=== PATIENT | female | born 1990 | race Caucasian/White ===

== ENCOUNTER 2019-02-05 18:43 | Inpatient (IN) | payer MEDICAID, SELFPAY ==
[~2019-02-05] VITALS: Ht 165.1 cm; Wt 81.4 kg
[2019-02-05] MEDS ORDERED: BCP (18:53)
[2019-02-05] MEDS ORDERED: methylPREDNISolone INJ 125 MG/2 ML VIAL (J2930) IV ONE (19:45)
[2019-02-05] MEDS ORDERED: ACETAMINOPHEN TAB 650MG DOSE (2X325MG) PO ONE (19:45)
[2019-02-05 19:58] LABS: INFLUENZA A AMPLIFICATION NEGATIVE (NEGATIVE); INFLUENZA B AMPLIFICATION POSITIVE (NEGATIVE)
[2019-02-05] MEDS ORDERED: NS 1,000 ML IV ONE (20:00)
[2019-02-05 20:05] LABS: ABG BASE EXCESS -5.9 (-2.0-2.0); ABG HCO3 16.9 MEQ/L (22.0-26.0); ABG O2 SATURATION 94.2 % (95.0-99.0); ABG PARTIAL PRESSURE CO2 26.1 mmHg (35.0-45.0); ABG PARTIAL PRESSURE O2 67.4 mmHg (75.0-100.0); ABG STANDARD HCO3 19.6 MEQ/L (22.0-26.0); ABG TOTAL CO2 17.7 MEQ/L (22.0-29.0); ABG pH (ARTERIAL) 7.428 UNITS (7.350-7.450)
[2019-02-05 20:18] LABS: BASO % 0.1 % (0.0-1.0); HEMATOCRIT 37.8 % (36.0-47.0); HEMOGLOBIN 12.6 g/dl (12.0-15.5); LYMPH # 0.3 10^3/uL (1.5-5.0); LYMPH % 1.9 % (24.0-44.0); MEAN CORPUSCULAR HEMOGLOBIN 30.1 pg (27.0-33.0); MEAN CORPUSCULAR HGB CONC 33.3 g/dl (32.0-36.5); MEAN CORPUSCULAR VOLUME 90.4 fl (80.0-96.0); MONO # 0.5 10^3/uL (0.0-0.8); MONO % 3.5 % (0.0-5.0); NEUTROPHILS # 13.6 10^3/uL (1.5-8.5); NEUTROPHILS % 93.9 % (36.0-66.0); PLATELET COUNT, AUTOMATED 294 10^3/uL (150-450); RED BLOOD COUNT 4.18 10^6/uL (4.00-5.40); WHITE BLOOD COUNT 14.5 10^3/uL (4.0-10.0)
[2019-02-05 20:29] LABS: INR 1.13; PROTHROMBIN TIME 14.2 SECONDS (11.8-14.0)
[2019-02-05 20:51] LABS: ALBUMIN 3.8 GM/DL (3.2-5.2); ALT/SGPT 26 U/L (12-78); BILIRUBIN,DIRECT 0.3 MG/DL (0.0-0.2); BILIRUBIN,TOTAL 0.9 MG/DL (0.2-1.0); BLOOD UREA NITROGEN 8 MG/DL (7-18); CARBON DIOXIDE LEVEL 21 MEQ/L (21-32); CHLORIDE LEVEL 105 MEQ/L (98-107); CK-MB VALUE MASS 1.1 NG/ML (<3.6); CPK CREATINE PHOSPHOKINASE 74 U/L (26-192); CREATININE FOR GFR 0.79 MG/DL (0.55-1.30); GLOMERULAR FILTRATION RATE > 60.0 (>60); GLUCOSE, FASTING 110 MG/DL (70-100); MB/CK RELATIVE INDEX 1.49 (< OR =4); NT-PRO BNP 305 PG/ML (<125); POTASSIUM SERUM 3.9 MEQ/L (3.5-5.1); SODIUM LEVEL 136 MEQ/L (136-145); THYROID STIMULATING HORMONE 0.341 uIU/ML (0.358-3.740); TOTAL PROTEIN 7.6 GM/DL (6.4-8.2); TROPONIN I < 0.02 NG/ML (< 0.10)
[2019-02-05] MEDS ORDERED: ISOVUE-370 76% 100ML VIAL (Q9967) As Ordered ONE (21:04)
--- NOTE | 2019-02-05 22:00 | REPVR ---
PROCEDURE INFORMATION: Exam: CT Angiography Chest With Contrast Exam date and time: 02/05/2019 9:13 PM Age: 28 years old Clinical history: Cough and fever and shortness of breath; Additional info: Fever, SOB, cough TECHNIQUE: Imaging protocol: Computed tomographic angiography of the chest with intravenous contrast. 3D rendering: MIP reconstructed images were created and reviewed. Radiation optimization: All CT scans at this facility use at least one of these dose optimization techniques: automated exposure control; mA and/or kV adjustment per patient size (includes targeted exams where dose is matched to clinical indication); or iterative reconstruction. Contrast material: ISOVUE 370; Contrast volume: 75 ml; Contrast route: IV; COMPARISON: No relevant prior studies available. FINDINGS: Pulmonary arteries: Normal. No pulmonary emboli. Aorta: Unremarkable. No aortic aneurysm. No aortic dissection. Lungs: Patchy air space opacities in the right middle and lower lobes. Lungs are otherwise clear. Pleural space: Unremarkable. No pneumothorax. No pleural effusion. Heart: Unremarkable. No cardiomegaly. No pericardial effusion. Lymph nodes: Unremarkable. No enlarged lymph nodes. Bones/joints: Unremarkable. No acute fracture. Soft tissues: Unremarkable. IMPRESSION: 1. Right middle and lower lobe pneumonia. 2. No evidence of pulmonary embolism. Electronically signed by: Trevor Whipple On 02/05/2019 22:00:23 PM
[2019-02-05] MEDS: IPRATROPIUM 0.5MG/ALBUTEROL 2.5MG INH SOL UD 3ML (DUONEB)(J7620) NEB PRN ×2 (22:02→22:12)
[2019-02-05] MEDS ORDERED: TRI-1TAB PO (22:37)
[2019-02-05] MEDS ORDERED: ACET-897 PO (22:37)
[2019-02-05] MEDS ORDERED: OSELTAMIVIR PHOSPHATE 75 MG CAP (TAMIFLU) PO ONE (22:45)
--- NOTE | 2019-02-05 22:58 | HPEPDOC ---
[facility] Medical History & Physical Date of Admission Feb 05, 2019 Date of Service: Feb 05, 2019 Attending Physician: JOE HOLT MD History and Physical TIME OF SERVICE: 11:40 PM CHIEF COMPLAINT: Shortness of breath HISTORY OF PRESENT ILLNESS: This is a 28-year-old old female who presents with complaints of shortness of breath off and on and dry cough for one year. She came in today because she de veloped fever, chills, and myalgias. She suspects she may have been exposed to people that were sick at her workplace. She reports being diagnosed with pneumonia 1 year ago and having frequent upper respiratory tract infections. REVIEW OF SYSTEMS: 12 point review of systems negative except as listed in HPI PAST MEDICAL/ SURGICAL HISTORY: History of pneumonia SOCIAL HISTORY: She drinks alcohol about one time per week and uses marijuana FAMILY HISTORY: Her grandpa had pneumonia ALLERGIES: Please see below. HOME MEDICATIONS: Please see below. PHYSICAL EXAMINATION: VITAL SIGNS: Please see below. GENERAL APPEARANCE: Well-nourished, well-developed, not in apparent distress, does not appear toxic HEENT: Normocephalic, atraumatic, mucous membranes slightly dry and pink. Lips are acyanotic.nasal cannula is in place LUNGS: There is equal air entry bilaterally, lungs are clear to auscultation bilaterally ABDOMEN: Abdomen is soft and nontender on palpation MUSCULOSKELETAL: There is no lower extremity edema. Range of motion is intact in all 4 extremities. She does not have fingernail clubbing. There is no lower extremity edema INTEGUMENT: She does not appear pale. Her skin is not flushed. She has a tattoo on her lower leg NEUROLOGICAL: cranial nerves II-12 are grossly intact. Speech is not dysarthric PSYCHIATRIC: Alert and oriented to person, place and time, able to understand and follow commands LABORATORY DATA: See below. IMAGING: CTA chest "IMPRESSION: 1. Right middle and lower lobe pneumonia. 2. No evidence of pulmonary embolism." MICROBIOLOGY: Please see below. ASSESSMENT: Ms. Aleman is a 28-year-old with a past medical history of pneumonia who will be admitted for management of sepsis secondary to influenza B & right sided pneumonia. PLAN: 1.Sepsis 2/2 Right Sided Pneumonia and Influenza B SIRS criteria include H R >90 / WBC >12 / RR >20 She also has non diabetic hyperglycemia. The ABG was reviewed; the mild hypoxic respiratory failure is 2/2 the upper respiratory tract infection The lactic acid is within normal limits NEW2S Score = 10 points = high risk Sepsis protocol was initiated in the ER, she received ceftriaxone, azithromycin and Tamiflu PORT/PSI Score to predict risk of mortality in pt w CAP = 48 points = class II risk = 0.6-0.9% mortality Plan: admit to medical floor/ telemetry /check orthostatics/ continue with IV fluids & supplemental O2 / f/u blood cx, and sputum Cx / Acetaminophen PRN for fever &Tessalon Perles when necessary for cough / target MAP 65 to 70 / f/u Is and Os with target UOP of at least 0.5 ml/kg/H / target serum glucose 140-180 while acutely ill / she can follow-up with her PCP to receive her flu shot on an outpatient basis DVT prophylaxis with Lovenox. Disposition likely home after more than 2 midnight stay Vital Signs Vital Signs Date Time Temp Pulse Resp B/P (MAP) Pulse Ox O2 Delivery O2 Flow Rate FiO2 02/05/19 22:25 99.1 02/05/19 22:15 127 114/55 (74) 96 Nasal Cannula 2.0 02/05/19 18:43 36 Laboratory Data Labs 24H Laboratory Tests 2 02/05/19 19:18: Influenza Type A (RT-PCR) NEGATIVE, Influenza Type B (RT-PCR) POSITIVEH 02/05/19 19:53: Blood Gas Bicarbonate Standard 19.6L, Arterial Blood pH 7.428, Arterial Blood Partial Pressure CO2 26.1L, Arterial Blood Partial Pressure O2 67.4L, Arterial Blood Total CO2 17.7L, Arterial Blood HCO3 16.9L, Arterial Blood Base Excess - 5.9L, Arterial Blood Oxygen Saturation 94.2L 02/05/19 20:06: Immature Granulocyte % (Auto) 0.6, Neutrophils (%) (Auto) 93.9H, Lymphocytes (%) (Auto) 1.9L, Monocytes (%) (Auto) 3.5, Eosinophils (%) (Auto) 0.0, Basophils (%) (Auto) 0.1, Neutrophils # (Auto) 13.6H, Lymphocytes # (Auto) 0.3L, Monocytes # (Auto) 0.5, Eosinophils # (Auto) 0.0, Basophils # (Auto) 0.0, Nucleated Red Blood Cells % (auto) 0.0, Prothrombin Time 14.2H, Prothromb Time International Ratio 1.13, Anion Gap 10, Glomerular Filtration Rate > 60.0, Lactic Acid Level 1.0, Calcium Level 9.0, Total Bilirubin 0.9, Direct Bilirubin 0.3H, Aspartate Amino Transf (AST/SGOT) 17, Alanine Aminotransferase (ALT/SGPT) 26, Alkaline Phosphatase 47, Total Creatine Kinase 74, Creatine Kinase MB 1.1, Creatine Kinase MB Relative Index 1.49, Troponin I < 0.02, IS-Mow-G-Type Natriuretic Peptide 305H, Total Protein 7.6, Albumin 3.8, Albumin/Globulin Ratio 1.00, Thyroid Stimulating Hormone (TSH) 0.341L CBC/BMP Laboratory Tests 02/05/19 20:06 Microbiology Microbiology 02/05/19 Blood Culture, Received Pending 02/05/19 Blood Culture, Received Pending Home Medications Scheduled Norgestimate-Ethinyl Estradiol (Ypf-Xu-Afbpkawf Tablet) 1 Each Tablet, 1 TAB PO QHS Scheduled PRN Acetaminophen (Tylenol Extra Strength) 500 Mg Tablet, 1,000 MG PO Q6H PRN for PAIN / FEVER Allergies Coded Allergies: No Known Allergies (Unverified , 02/05/19) A-FIB/CHADSVASC A-FIB History Current/History of A-Fib/PAF?: No Current PO Anticoag Therapy: JOE Santos MD Feb 05, 2019 22:58
[2019-02-05] MEDS ORDERED: SODIUM CHLORIDE 0.9% 1000ML IV STA (22:59)
[2019-02-05] MEDS ORDERED: cefTRIAXone SOD 1 GM in D5W MINI-BAG PLUS 50 ML IV ONE (23:00)
[2019-02-05] MEDS ORDERED: AZITHROMYCIN INJ 500 MG, VIAL MATE ADAPTER 1 EACH in D5W 250 ML IV ONE (23:00)
[2019-02-06] MEDS ORDERED: NS 1,000 ML IV ONE ×2 (02:00)
[2019-02-06 03:15] VITALS: BP 136/84
[2019-02-06 03:30] VITALS: BP_SYST 136; BP_SYST 169; BP_SYST 178; BP_DIAS 84; BP_DIAS 85; BP_DIAS 95
[2019-02-06] MEDS: cefTRIAXone SOD 2 GM in D5W MINI-BAG PLUS 50 ML IV SCH ×2 (05:05→17:40)
[2019-02-06 06:00] VITALS: BP_SYST 140; BP_SYST 146; BP_SYST 147; BP_DIAS 86; BP_DIAS 89; BP_DIAS 90
[2019-02-06 06:32] LABS: HEMATOCRIT 33.7 % (36.0-47.0); HEMOGLOBIN 10.7 g/dl (12.0-15.5); MEAN CORPUSCULAR HEMOGLOBIN 29.4 pg (27.0-33.0); MEAN CORPUSCULAR HGB CONC 31.8 g/dl (32.0-36.5); MEAN CORPUSCULAR VOLUME 92.6 fl (80.0-96.0); PLATELET COUNT, AUTOMATED 274 10^3/uL (150-450); RED BLOOD COUNT 3.64 10^6/uL (4.00-5.40); WHITE BLOOD COUNT 9.5 10^3/uL (4.0-10.0)
[2019-02-06 06:42] LABS: BLOOD UREA NITROGEN 8 MG/DL (7-18); CALCIUM LEVEL 8.2 MG/DL (8.5-10.1); CARBON DIOXIDE LEVEL 19 MEQ/L (21-32); CHLORIDE LEVEL 112 MEQ/L (98-107); CREATININE FOR GFR 0.76 MG/DL (0.55-1.30); GLOMERULAR FILTRATION RATE > 60.0 (>60); GLUCOSE, FASTING 171 MG/DL (70-100); MAGNESIUM LEVEL 1.9 MG/DL (1.8-2.4); POTASSIUM SERUM 3.9 MEQ/L (3.5-5.1); SODIUM LEVEL 139 MEQ/L (136-145)
[2019-02-06] MEDS: ENOXAPARIN 40 MG/0.4 ML SYRINGE (J1650) SC SCH (08:26)
[2019-02-06] MEDS: OSELTAMIVIR PHOSPHATE 75 MG CAP (TAMIFLU) PO SCH ×2 (08:26→22:05)
[2019-02-06] MEDS ORDERED: INFLUENZA QUADRIVALENT PF VACCINE 0.5ML SYRINGE (90686) IM ONE (09:00)
[2019-02-06 14:00] VITALS: BP 145/88
--- NOTE | 2019-02-06 14:29 | IPNPDOC ---
Text Note Date of Service The patient was seen on 02/06/19. NOTE Subjective: Patient stated that she feels better today, she has intermittent cough with mild shortness of breath Patient denies chest pain, palpitations, diarrhea or dysuria Objective:VITAL SIGNS: Please see below. GENERAL APPEARANCE: Well-nourished, well-developed F HEENT: Normocephalic, atraumatic. Mucous members moist and pink CARDIOVASCULAR: Regular rate and rhythm. No murmurs, rubs or gallops. Radial pulses are intact. There is no lower extremity edema LUNGS: Clear to auscultation ABDOMEN: Abdomen is soft and nontender. MUSCULOSKELETAL: Range of motion is intact in all 4 extremities NEUROLOGICAL: Cranial nerves II-12 are grossly intact. Speech is not dysarthric 28-year-old with a past medical history of pneumonia who will be admitted for management of sepsis secondary to influenza B & right sided pneumonia. Sepsis Resolved Secondary to right-sided pneumonia due to influenza type B superimposed with bacterial component CT showed right middle and lower lobe infiltrate Ceftriaxone IV, azithromycin IV Tylenol when necessary Community-acquired pneumonia See above Incentive spirometry Influenza B Continue Tamiflu VS,Fishbone, I+O VS, Fishbone, I+O Laboratory Tests 02/05/19 20:06 02/06/19 05:39 Vital Signs Date Time Temp Pulse Resp B/P (MAP) Pulse Ox O2 Delivery O2 Flow Rate FiO2 02/06/19 08:27 1.0 02/06/19 06:00 120 140/86 (104) 128 146/90 (108) 124 147/89 (108) 02/06/19 03:15 99.0 22 96 Nasal Cannula I&O- Last 24 Hours up to 6 AM 02/06/19 06:00 Intake Total 2800 ml Output Total 800 ml Balance 2000 ml MARCY LESLIE DO Feb 06, 2019 14:29
--- NOTE | 2019-02-06 15:19 | ECGEPIP ---
[facility] - ED Test Date: 2019-02-05 Pat Name: KENNEY EVANS Department: Room: [place] [address] Gender: Female [employer]: brown : 1990 Requested By: ZURDO Phillips Order Number: [id number] Reading MD: Miguel Angel Cervantes Measurements Intervals [place] Rate: 132 P: 72 UT: 163 QRS: 56 QRSD: 85 T: 67 QT: 266 QTc: 395 Interpretive Statements SINUS TACHYCARDIA INCOMPLETE RIGHT BUNDLE BRANCH BLOCK NO PRIORS FOR COMPARISON Electronically Signed on 02-06-2019 15:19:27 EST by Miguel Angel Cervantes
[2019-02-06 22:00] VITALS: BP 133/93
[2019-02-07] MEDS ORDERED: AZITHROMYCIN INJ 500 MG, VIAL MATE ADAPTER 1 EACH in D5W 250 ML IV SCH ×3
[2019-02-07] MEDS: ACETAMINOPHEN TAB 650MG DOSE (2X325MG) PO PRN ×2 (00:36→06:02)
[2019-02-07 02:00] VITALS: BP 124/74
[2019-02-07] MEDS: cefTRIAXone SOD 2 GM in D5W MINI-BAG PLUS 50 ML IV SCH (05:05)
[2019-02-07 06:00] VITALS: BP 157/95
[2019-02-07] MEDS: ENOXAPARIN 40 MG/0.4 ML SYRINGE (J1650) SC SCH (08:12)
[2019-02-07] MEDS: OSELTAMIVIR PHOSPHATE 75 MG CAP (TAMIFLU) PO SCH (08:12)
[2019-02-07 10:00] VITALS: BP 136/76
[2019-02-07] MEDS ORDERED: OSEL75CA2 PO (12:38)
[2019-02-07] MEDS ORDERED: DOXY-342 PO (12:38)
[2019-02-07] MEDS ORDERED: AZIT500T5 PO (12:38)
[2019-02-07] MEDS ORDERED: ACET1TAB55 PO (12:38)
--- NOTE | 2019-02-07 15:42 | DS.PDOC ---
Discharge Summary General Date of Admission Feb 05, 2019 at 22:57 Date of Discharge 02/07/19 Discharge Summary PROCEDURES PERFORMED DURING STAY: [None]. ADMITTING DIAGNOSES: Sepsis Community-acquired pneumonia Influenza B DISCHARGE DIAGNOSES: Sepsis Community-acquired pneumonia Influenza B COMPLICATIONS/CHIEF COMPLAINT: Hypoxemia;Influenza B;Pneumonia;Sepsis. HISTORY OF PRESENT ILLNESS: This is a 28-year-old old female who presents with complaints of shortness of breath off and on and dry cough for one year. She came in today because she developed fever, chills, and myalgias. She suspects she may have been exposed to people that were sick at her workplace. She reports being diagnosed with pneumonia 1 year ago and having frequent upper respiratory tract infections. HOSPITAL COURSE: During hospital stay the following issue addressed Patient has been treated for sepsis Secondary to right-sided pneumonia due to influenza type B superimposed with bacterial component CT showed right middle and lower lobe infiltrate Patient received Ceftriaxone IV, azithromycin IV Tylenol when necessary Community-acquired pneumonia See above Patient received treatment with Incentive spirometry Influenza B Patient received treatment with Tamiflu DISCHARGE MEDICATIONS: Please see below. ALLERGIES: Please see below. PHYSICAL EXAMINATION ON DISCHARGE: VITAL SIGNS: Please see below. GENERAL APPEARANCE: Well-nourished, well-developed F HEENT: Normocephalic, atraumatic. Mucous members moist and pink CARDIOVASCULAR: Regular rate and rhythm. No murmurs, rubs or gallops. Radial pulses are intact. There is no lower extremity edema LUNGS: Clear to auscultation ABDOMEN: Abdomen is soft and nontender. MUSCULOSKELETAL: Range of motion is intact in all 4 extremities NEUROLOGICAL: Cranial nerves II-12 are grossly intact. Speech is not dysarthric LABORATORY DATA: Please see below. IMAGING: Exam: CT Angiography Chest With Contrast Exam date and time: 02/05/2019 9:13 PM Age: 28 years old Clinical history: Cough and fever and shortness of breath; Additional info: Fever, SOB, cough TECHNIQUE: Imaging protocol: Computed tomographic angiography of the chest with intravenous contrast. 3D rendering: MIP reconstructed images were created and reviewed. Radiation optimization: All CT scans at this facility use at least one of these dose optimization techniques: automated exposure control; mA and/or kV adjustment per patient size (includes targeted exams where dose is matched to clinical indication); or iterative reconstruction. Contrast material: ISOVUE 370; Contrast volume: 75 ml; Contrast route: IV; COMPARISON: No relevant prior studies available. FINDINGS: Pulmonary arteries: Normal. No pulmonary emboli. Aorta: Unremarkable. No aortic aneurysm. No aortic dissection. Lungs: Patchy air space opacities in the right middle and lower lobes. Lungs are otherwise clear. Pleural space: Unremarkable. No pneumothorax. No pleural effusion. Heart: Unremarkable. No cardiomegaly. No pericardial effusion. Lymph nodes: Unremarkable. No enlarged lymph nodes. Bones/joints: Unremarkable. No acute fracture. Soft tissues: Unremarkable. IMPRESSION: 1. Right middle and lower lobe pneumonia. 2. No evidence of pulmonary embolism. PROGNOSIS: Favorable ACTIVITY: [As tolerated]. DIET: Regular DISCHARGE PLAN: Take prescribed medications DISPOSITION: Home, Self-Care. DISCHARGE INSTRUCTIONS: Continue incentive spirometry ITEMS TO FOLLOWUP ON ON OUTPATIENT: With PCP DISCHARGE CONDITION: [Stable]. TIME SPENT ON DISCHARGE: Greater than 20 minutes. Vital Signs/I&Os Vital Signs Date Time Temp Pulse Resp B/P (MAP) Pulse Ox O2 Delivery O2 Flow Rate FiO2 02/07/19 10:00 98.8 100 16 136/76 (96) 96 Room Air 02/06/19 14:00 2.0 I&O- Last 24 Hours up to 6 AM 02/07/19 06:00 Intake Total 1690 ml Output Total 4500 ml Balance -2810 ml Microbiology Microbiology 02/05/19 Blood Culture - Preliminary, Resulted No growth after 24 hours . All specim... 02/05/19 Blood Culture - Preliminary, Resulted No growth after 24 hours . All specim... Discharge Medications Scheduled Azithromycin (Azithromycin) 500 Mg Tablet, 500 MG PO DAILY Doxycycline Monohydrate (Doxycycline) 100 Mg Capsule, 100 MG PO BID Norgestimate-Ethinyl Estradiol (Hmg-Pm-Xrvnegsa Tablet) 1 Each Tablet, 1 TAB PO QHS, (Reported) Oseltamivir Phosphate (Oseltamivir Phosphate) 75 Mg Capsule, 75 MG PO Q12H Scheduled PRN Acetaminophen (Acetaminophen) 325 Mg Tablet, 650 MG PO Q4H PRN for PAIN OR FEVER Allergies Coded Allergies: No Known Allergies (Unverified , 02/05/19) MARCY LESLIE DO Feb 07, 2019 15:42
== END 2019-02-07 13:58 | disposition home or self-care (01) | DRG 720 ==
LOC: M ED 18:43 → M ED INP 22:57 → M MSPAV 02-06 03:15
PROVIDERS: ADMIT Internal Medicine; ATTEND Internal Medicine
DX: A41.9 Sepsis, unspecified organism (principal); J11.08 Influenza due to unidentified influenza virus with specified pneumonia; Z79.899 Other long term (current) drug therapy

== ENCOUNTER → 2020-03-19 | Outpatient (CLI) | payer SELFPAY ==
[~2020-03-19] MED LIST: ACET-897 PO; ACET1TAB55 PO; AZIT500T5 PO; BCP; DOXY-342 PO; OSEL75CA2 PO; TRI-1TAB PO
== END ==
LOC: M LABSMTC 09:09
PROVIDERS: ATTEND Pediatrics
DX: Z20.822 Contact with and (suspected) exposure to COVID-19 (principal)

== ENCOUNTER → 2021-02-06 | Outpatient (CLI) | payer OTHER ==
[2021-02-06 18:05] LABS: BASO % 0.2 % (0.0-1.0); EOS # 0.2 10^3/uL (0.0-0.5); EOS % 1.4 % (0.0-3.0); HEMATOCRIT 39.4 % (36.0-47.0); HEMOGLOBIN 12.9 g/dl (12.0-15.5); LYMPH # 2.4 10^3/uL (1.5-5.0); LYMPH % 21.3 % (24.0-44.0); MEAN CORPUSCULAR HEMOGLOBIN 29.5 pg (27.0-33.0); MEAN CORPUSCULAR HGB CONC 32.7 g/dl (32.0-36.5); MONO # 0.5 10^3/uL (0.0-0.8); MONO % 4.5 % (2.0-8.0); NEUTROPHILS # 8.3 10^3/uL (1.5-8.5); NEUTROPHILS % 72.3 % (36.0-66.0); PLATELET COUNT, AUTOMATED 387 10^3/uL (150-450); RED BLOOD COUNT 4.38 10^6/uL (4.00-5.40); WHITE BLOOD COUNT 11.5 10^3/uL (4.0-10.0)
[2021-02-06 19:14] LABS: HEPATITIS C VIRUS ABY INDEX 0.1 INDEX (<0.8); HIV 1&2 SCREEN CENTAUR NEGATIVE (NEGATIVE)
[2021-02-06 22:13] LABS: GC DNA AMPLIFICATION NEGATIVE (NEGATIVE)
== END ==
LOC: M PLALAB 14:15
PROVIDERS: ATTEND Obstetrics & Gynecology
DX: Z34.91 Encounter for supervision of normal pregnancy, unspecified, first trimester (principal); Z3A.00 Weeks of gestation of pregnancy not specified

== ENCOUNTER → 2021-02-28 | Outpatient (CLI) | payer OTHER | LOC: M PLALAB 09:28 | PROVIDERS: ATTEND Obstetrics & Gynecology | DX: Z34.81 Encounter for supervision of other normal pregnancy, first trimester (principal); Z36.89 Encounter for other specified antenatal screening ==

== ENCOUNTER → 2021-05-04 | Outpatient (CLI) | payer OTHER | LOC: M WHC 08:28 | PROVIDERS: ATTEND Obstetrics & Gynecology | DX: Z36.89 Encounter for other specified antenatal screening (principal); Z3A.17 17 weeks gestation of pregnancy ==

== ENCOUNTER → 2021-06-01 | Outpatient (CLI) | payer OTHER | LOC: M WHC 08:45 | PROVIDERS: ATTEND Obstetrics & Gynecology | DX: Z34.02 Encounter for supervision of normal first pregnancy, second trimester (principal); Z36.89 Encounter for other specified antenatal screening; Z3A.24 24 weeks gestation of pregnancy ==

== ENCOUNTER → 2021-06-22 | Outpatient (CLI) | payer OTHER ==
[2021-06-22 15:23] LABS: HEMOGLOBIN 10.9 g/dl (12.0-15.5); MEAN CORPUSCULAR HEMOGLOBIN 30.5 pg (27.0-33.0); MEAN CORPUSCULAR HGB CONC 34.1 g/dl (32.0-36.5); MEAN CORPUSCULAR VOLUME 89.6 fl (80.0-96.0); PLATELET COUNT, AUTOMATED 284 10^3/uL (150-450); RED BLOOD COUNT 3.57 10^6/uL (4.00-5.40); WHITE BLOOD COUNT 9.9 10^3/uL (4.0-10.0)
== END ==
LOC: M PLALAB 12:43
PROVIDERS: ATTEND Obstetrics & Gynecology
DX: Z34.02 Encounter for supervision of normal first pregnancy, second trimester (principal)

== ENCOUNTER → 2021-08-23 | Outpatient (REF) | payer OTHER | LOC: M PLALAB 11:07 | PROVIDERS: ATTEND Obstetrics & Gynecology | DX: Z36.85 Encounter for antenatal screening for Streptococcus B (principal); Z3A.00 Weeks of gestation of pregnancy not specified ==

== ENCOUNTER 2021-09-08 09:25 | Inpatient (IN) | payer OTHER ==
[~2021-09-08] VITALS: Ht 165.1 cm; Wt 97.6 kg
[2021-09-08] VITALS (7 sets, daily range): BP systolic 126–151; BP diastolic 78–89
[2021-09-08] MEDS: miSOPROStol 25MCG 1/4 TABLET SL SCH ×3 (11:49→19:49)
[2021-09-08 12:06] LABS: HEMATOCRIT 34.5 % (36.0-47.0); HEMOGLOBIN 11.7 g/dl (12.0-15.5); MEAN CORPUSCULAR HEMOGLOBIN 29.4 pg (27.0-33.0); MEAN CORPUSCULAR HGB CONC 33.9 g/dl (32.0-36.5); MEAN CORPUSCULAR VOLUME 86.7 fl (80.0-96.0); PLATELET COUNT, AUTOMATED 191 10^3/uL (150-450); RED BLOOD COUNT 3.98 10^6/uL (4.00-5.40); WHITE BLOOD COUNT 8.3 10^3/uL (4.0-10.0)
[2021-09-09] MEDS: miSOPROStol 25MCG 1/4 TABLET SL SCH (00:02)
[2021-09-09] MEDS ORDERED: miSOPROStol 50MCG 1/2 TABLET SL SCH (09:00)
[2021-09-09] MEDS ORDERED: BUTORPHANOL 2 MG/ML INJ (J0595) IV ONE (10:05)
[2021-09-09] MEDS ORDERED: PROMETHAZINE 25MG/ML 1ML VIAL IV ONE (10:05)
[2021-09-09] MEDS ORDERED: LR 1,000 ML IV SCH (13:00)
[2021-09-09] MEDS ORDERED: OXYTOCIN DRIP 30 UNITS in IV 1 EA IV SCH ×2 (13:00→20:50)
[2021-09-09] MEDS ORDERED: PENICILLIN G POTASSIUM IV 5 MU in D5W MINI-BAG PLUS 100 ML IV STA (16:43)
[2021-09-09] MEDS ORDERED: BICITRA 30ML SOLN UDC PO ONE (19:05)
[2021-09-09] MEDS ORDERED: LACTATED RINGER'S 1000 ML IV STA (19:05)
[2021-09-09] MEDS ORDERED: AZITHROMYCIN INJ 500 MG, VIAL MATE ADAPTER 1 EACH in NS 250 ML IV ONE (19:05)
[2021-09-09] MEDS ORDERED: ceFAZolin SOD 2 GM in IV 1 EA IV ONE (19:05)
[2021-09-09] MEDS ORDERED: MORPHINE PRES-FREE INJ 10 MG/10 ML VIAL As Ordered ONE (19:12)
[2021-09-09] MEDS ORDERED: OXYTOCIN 30 UNITS IN 0.9% NaCl 500ML IV BAG (J2590) As Ordered ONE ×2 (19:13→21:12)
[2021-09-09 19:27] VITALS: BP 141/78
[2021-09-09] MEDS ORDERED: ONDANSETRON 4MG 2ML VIAL As Ordered ONE (20:14)
[2021-09-09] MEDS ORDERED: dexameTHASONE 4 MG/ML 1ML VIAL (J1100 PER 1MG) As Ordered ONE (20:14)
[2021-09-09] MEDS ORDERED: KETOROLAC 60MG 2ML VIAL As Ordered ONE (20:15)
[2021-09-09 20:24] LABS: CORD GAS ABE A -10.7; CORD GAS O2 SAT A 31.5 %; CORD GAS PCO2 A 56.7 mmHg; CORD GAS PH A 7.142 UNITS; CORD GAS PO2 A 18.4 mmHg; CORD GAS SBC A 14.8 MEQ/L; CORD GAS TCO2 A 20.7 MEQ/L
[2021-09-09 20:25] LABS: CORD GAS ABE V -12.8; CORD GAS HCO3 V 15.9 MEQ/L; CORD GAS O2 SAT V 48.3 %; CORD GAS PCO2 V 46.3 mmHg; CORD GAS PH V 7.153 UNITS; CORD GAS PO2 V 23.9 mmHg; CORD GAS SBC V 13.8 MEQ/L; CORD GAS TCO2 V 17.3 MEQ/L
[2021-09-09] MEDS ORDERED: OXYTOCIN INJ 10 UNITS/ML VIAL (J2590) As Ordered ONE (20:26)
[2021-09-09] MEDS ORDERED: SIMETHICONE 80MG CHEW TAB PO PRN (20:50)
[2021-09-09] MEDS ORDERED: RHOGAM 300 MCG (1500 IU) INJ (J2790) IM SCH (20:50)
[2021-09-09] MEDS ORDERED: PERCOCET 5MG/325MG TAB PO PRN ×2 (20:50)
[2021-09-09] MEDS ORDERED: ONDANSETRON 4MG 2ML VIAL IV PRN (20:50)
[2021-09-09] MEDS ORDERED: DOCUSATE SODIUM 100MG CAPSULE PO PRN (20:50)
[2021-09-09] MEDS ORDERED: ePHEDrine SULFATE 25 MG/5 ML(5MG/ML) SYRINGE As Ordered ONE (21:01)
[2021-09-09] MEDS: LR 1,000 ML IV SCH ×2 (21:17→23:45)
[2021-09-09] MEDS ORDERED: PENICILLIN G POTASSIUM IV 2.5 MU in IV 1 EA IV SCH (21:45)
[2021-09-09] MEDS ORDERED: ePHEDrine SULFATE 25 MG/5 ML(5MG/ML) SYRINGE IV PRN (22:20)
[2021-09-09] MEDS ORDERED: NIFEdipine 30 MG XL TAB PO STA (23:26)
[2021-09-09] MEDS ORDERED: NIFEdipine 10 MG CAP PO SCH (23:35)
[2021-09-09] MEDS ORDERED: NIFEdipine 10 MG CAP PO ONE (23:35)
[2021-09-09 23:43] VITALS: BP 173/91
[2021-09-10] VITALS (11 sets, daily range): BP systolic 123–162; BP diastolic 68–92
[2021-09-10] MEDS: KETOROLAC 30 MG/ML 1ML VIAL IV SCH ×3 (03:31→16:14)
[2021-09-10 07:29] LABS: HEMATOCRIT 28.7 % (36.0-47.0); MEAN CORPUSCULAR HEMOGLOBIN 29.5 pg (27.0-33.0); MEAN CORPUSCULAR HGB CONC 33.8 g/dl (32.0-36.5); MEAN CORPUSCULAR VOLUME 87.2 fl (80.0-96.0); PLATELET COUNT, AUTOMATED 215 10^3/uL (150-450); RED BLOOD COUNT 3.29 10^6/uL (4.00-5.40); WHITE BLOOD COUNT 17.4 10^3/uL (4.0-10.0)
[2021-09-10 07:38] LABS: HEMOGLOBIN 9.7 g/dl (12.0-15.5)
[2021-09-10] MEDS: PRENATAL VITAMINS CHEWABLE TABLET PO SCH (08:15)
[2021-09-10] MEDS: LR 1,000 ML IV SCH (08:16)
[2021-09-10 13:16] LABS: HIV 1&2 SCREEN CENTAUR NEGATIVE (NEGATIVE)
[2021-09-10] MEDS: IBUPROFEN 800 MG TAB PO SCH (23:20)
[2021-09-11 02:00] VITALS: BP 156/82
[2021-09-11 06:00] VITALS: BP 135/83
[2021-09-11] MEDS ORDERED: OXYC1TAB23 PO (06:53)
[2021-09-11] MEDS ORDERED: IBUP80TA PO (06:53)
[2021-09-11] MEDS: IBUPROFEN 800 MG TAB PO SCH ×3 (07:05→22:44)
[2021-09-11] MEDS: PRENATAL VITAMINS CHEWABLE TABLET PO SCH (08:06)
[2021-09-11] MEDS ORDERED: MEASLES,MUMPS,RUBELLA VACCINE INJ (MMR-II) (90707) SC.IMMUN ONE (09:00)
[2021-09-11 10:00] VITALS: BP 123/71
[2021-09-11 14:00] VITALS: BP 141/80
[2021-09-11 18:00] VITALS: BP 138/74
[2021-09-12 06:00] VITALS: BP 130/82
[2021-09-12] MEDS: IBUPROFEN 800 MG TAB PO SCH (06:10)
[2021-09-12] MEDS: PRENATAL VITAMINS CHEWABLE TABLET PO SCH (09:29)
== END 2021-09-12 11:00 | disposition home or self-care (01) | DRG 540 ==
LOC: M LDI 09:25 → M OBS 09-10 00:35
PROVIDERS: ADMIT Specialist; ATTEND Specialist
PROC: 3E0P7VZ Introduction of Hormone into Female Reproductive, Via Natural or Artificial Opening (ICD-10-PCS; 2021-09-09)
PROC: 10907ZC Drainage of Amniotic Fluid, Therapeutic from Products of Conception, Via Natural or Artificial Opening (ICD-10-PCS; 2021-09-09)
PROC: 3E033VJ Introduction of Other Hormone into Peripheral Vein, Percutaneous Approach (ICD-10-PCS; 2021-09-09)
PROC: 10D00Z1 Extraction of Products of Conception, Low, Open Approach (ICD-10-PCS; principal; 2021-09-09 19:30)
DX: O13.4 Gestational [pregnancy-induced] hypertension without significant proteinuria, complicating childbirth (principal); O77.0 Labor and delivery complicated by meconium in amniotic fluid; Z37.0 Single live birth; Z3A.38 38 weeks gestation of pregnancy; Z79.899 Other long term (current) drug therapy; O76 Abnormality in fetal heart rate and rhythm complicating labor and delivery

== ENCOUNTER → 2022-10-08 | Outpatient (REF) | payer OTHER ==
[~2022-10-08] MED LIST changes: -DOXY-342 PO; +DOXY100C82 PO; +IBUP80TA PO; +OXYC1TAB23 PO
[2022-10-08 19:24] LABS: GC DNA AMPLIFICATION NEGATIVE (NEGATIVE)
== END ==
LOC: M SFHCWAGY 17:19
PROVIDERS: ATTEND Nurse Practitioner Family
DX: Z11.3 Encounter for screening for infections with a predominantly sexual mode of transmission (principal); Z12.4 Encounter for screening for malignant neoplasm of cervix